=== PATIENT | male | born 1935 | race Caucasian/White ===

== ENCOUNTER 2018-10-12 10:13 | Emergency (ER) | payer OTHER ==
[~2018-10-12] VITALS: Ht 182.9 cm; Wt 63.5 kg
[2018-10-12] MEDS ORDERED: B12INJ IM (10:19)
[2018-10-12] MEDS ORDERED: VITAMINC500 PO (10:20)
[2018-10-12 10:42] LABS: HEMATOCRIT 37.4 % (42.0-52.0); HEMOGLOBIN 12.8 gm/dL (14.0-18.0); MCH 29.5 pg (26.0-34.0); MCHC 34.2 g/dL (28.0-37.0); MCV 86.4 fL (80.0-100.0); PLATELET COUNT 124 thou/uL (150-400); RBC 4.33 mil/uL (4.50-6.00); RDW 13.9 % (10.5-14.5); WBC 2.6 thou/uL (4.0-11.0)
[2018-10-12 10:52] LABS: CALCIUM 9.3 mg/dL (8.5-10.1); POTASSIUM 3.7 mmol/L (3.5-5.1)
[2018-10-12 10:58] LABS: ALBUMIN 3.7 g/dL (3.4-5.0); MAGNESIUM 2.1 mg/dL (1.8-2.4); TOTAL BILIRUBIN 0.3 mg/dL (<0.1-1.0); TOTAL PROTEIN 6.6 g/dL (6.4-8.2)
[2018-10-12 11:05] LABS: ABSOLUTE NEUTROPHILS 1.1 thou/uL (1.4-8.2); PLATELET ESTIMATE NORMAL
[2018-10-12 12:08] LABS: URINE BILIRUBIN NEGATIVE (Negative); URINE BLOOD 2+ (Negative); URINE CLARITY CLEAR; URINE COLOR YELLOW; URINE GLUCOSE-RANDOM* NEGATIVE (Negative); URINE KETONES NEGATIVE (Negative); URINE LEUKOCYTES-REFLEX NEGATIVE (Negative); URINE NITRITE-REFLEX NEGATIVE (Negative); URINE PROTEIN (DIPSTICK) NEGATIVE (Negative); URINE SPECIFIC GRAVITY <= 1.005 (1.005-1.035); URINE UROBILINOGEN 0.2 E.U./dl (0.2-1.0)
[2018-10-12 12:19] LABS: CASTS None Seen /LPF (None Seen); CRYSTALS None Seen /LPF (None Seen); SQUAMOUS 4-10 Moderate /LPF (0-3)
[2018-10-12 12:20] LABS: BACTERIA-REFLEX 1-9 Few /HPF (None Seen); URINE RBC 3-10 Few /HPF (0-2); URINE WBC-REFLEX 0-5 Rare /HPF (0-5)
[2018-10-12 14:49] VITALS: BP 126/72
--- NOTE | 2018-10-14 17:51 | EKG ---
[address] [employer] [place] [address] ELECTROCARDIOGRAM REPORT Name: STEPHANIE ALVAREZ Room #: DEP NEELIMA Prasad#: [id number] Admission: 10/12/18 Attend Phys: Discharge: 10/12/18 Date of : 35 Report #: [id number] THIS REPORT FOR: //name// [facility] ED Test Date: 2018-10-12 Test Time: 12:08:25 Pat Name: STEPHANIE ALVAREZ Department: Room: Gender: M Ore Tester: charlie : 1935 Requested By: Rom Shane Order Number: [id number] MD: Jerzy Summers Measurements Intervals Welches Rate: 62 P: TN: QRS: 47 QRSD: 89 T: 37 QT: 391 QTc: 397 Interpretive Statements Junctional rhythm No previous ECG available for comparison Electronically Signed On 10-14-2018 17:51:08 CDT by Jerzy Summers [email or web address] <ELECTRONICALLY SIGNED> By: Jerzy Summers MD, [facility] 10/14/18 1751 1208 [id number] Jerzy Summers MD, FACC /EPI
== END 2018-10-12 14:50 | disposition home or self-care (01) ==
LOC: ER 10:13
PROVIDERS: Emergency Medicine
DX: D61.818 Other pancytopenia (principal); F03.90 Unspecified dementia, unspecified severity, without behavioral disturbance, psychotic disturbance, mood disturbance, and anxiety